=== PATIENT | male | born 1950 | race Caucasian/White ===

== ENCOUNTER 2021-02-09 17:01 | Emergency (ER) | payer MEDICARE ==
[2021-02-09 17:18] VITALS: RESP 18
[2021-02-09] MEDS ORDERED: METOCLOPRAMIDE 5 MG/ML 2 ML VIAL IVP STA (17:44)
--- NOTE | 2021-02-09 18:05 | ED ---
Nausea/Vomiting/Diarrhea HPI - General Source: patient, EMS, RN notes reviewed Mode of arrival: EMS Limitations: no limitations <Salud Alicea - Last Filed: 02/09/21 18:53> <Gabriel Elias - Last Filed: 02/09/21 20:16> - General Chief complaint: Nausea/Vomiting/Diarrhea Stated complaint: COVID+ Time Seen by Provider: 02/09/21 17:30 - History of Present Illness Initial comments: Patient is a 70-year-old female presenting to the emergency department via EMS with complaints of nausea, vomiting, diarrhea that started today. Patient states he tested positive for Covid 2 days ago, her symptoms began 4 days ago. She states her symptoms have been very mild with a mild cough, bodyaches and chills. She has not been vaccinated, just retruned from a trip to [place] last week. She states today, out of the blue, started having diarrhea and then nausea and vomiting. She's had several bouts of diarrhea today. Occasional abdominal cramping but no significant pain. She denies any chest pain or shortness of breath. She denies any fevers or chills. She states she has been eating and drinking as normal over the past few days until today. She has no further complaints. Patient did receive 2 L of fluids and 8 mg of Zofran EMS prior to arrival. Her vital signs are stable upon arrival. (Salud Alicea) - Related Data Home Medications Medication Instructions Recorded Confirmed Apixaban [Eliquis] 5 mg PO BID 02/09/21 02/09/21 Cholecalciferol [Vitamin D3 (25 50 mcg PO DAILY 02/09/21 02/09/21 Mcg = 1000 Iu)] Metoprolol Tartrate [Lopressor] 25 mg PO BID 02/09/21 02/09/21 Propafenone HCl 150 mg PO Q12H 02/09/21 02/09/21 Vitamin E 400 unit PO DAILY 02/09/21 02/09/21 Zinc 50 mg PO DAILY 02/09/21 02/09/21 guaiFENesin [Mucinex] 600 mg PO BID PRN 02/09/21 02/09/21 Allergies Allergy/AdvReac Type Severity Reaction Status Date / Time No Known Allergies Allergy Verified 02/09/21 18:27 Review of Systems ROS Other: All systems not noted in ROS Statement are negative. <Salud Alicea - Last Filed: 02/09/21 18:53> ROS Other: All systems not noted in ROS Statement are negative. <CurtGabriel - Last Filed: 02/09/21 20:16> ROS Statement: Those systems with pertinent positive or pertinent negative responses have been documented in the HPI. Past Medical History Past Medical History: Atrial Fibrillation Additional Past Medical History / Comment(s): ablation 01/2021 History of Any Multi-Drug Resistant Organisms: None Reported Past Surgical History: Section Past Psychological History: No Psychological Hx Reported Smoking Status: Never smoker <Salud Alicea - Last Filed: 02/09/21 18:53> General Exam Limitations: no limitations <Salud Alicea - Last Filed: 02/09/21 18:53> - General Exam Comments Initial Comments: GENERAL: Patient is well-developed and well-nourished. Patient is nontoxic and in no acute distress. HEAD: Atraumatic, normocephalic. EYES: Pupils equal round and reactive to light, extraocular movements intact, sclera anicteric, conjunctiva are normal. Eyelids were unremarkable. ENT: Nares patent, oropharynx clear without exudates. Moist mucous membranes. NECK: Normal range of motion, supple without lymphadenopathy or JVD. LUNGS: Unlabored respirations. Breath sounds clear to auscultation bilaterally and equal. No wheezes rales or rhonchi. HEART: Regular rate and rhythm without murmurs, rubs or gallops. ABDOMEN: Soft, mild discomfort noted in the lower abdomen region, this is generalized, no specific area pain., normoactive bowel sounds. No guarding, no rebound. No masses appreciated. MUSCULOSKELETAL: Normal extremities with adequate strength and normal range of motion, no pitting or edema. No clubbing or cyanosis. NEUROLOGICAL: Patient is alert and oriented x 3. Motor and sensory are also intact. Cranial nerves II through XII grossly intact. Symmetrical smile. Normal speech, normal gait. PSYCH: Normal mood, normal affect. SKIN: Warm, Dry, normal turgor, no rashes or lesions noted. (Salud Alicea) Course <Salud Alicea - Last Filed: 02/09/21 18:53> Vital Signs 1102/09/21 02/09/21 17:11 19:03 20:13 Temperature 97.6 F 98.2 F Pulse Rate 72 77 84 Respiratory 18 18 18 Rate Blood Pressure 139/78 133/76 132/68 O2 Sat by Pulse 95 94 L 96 Oximetry - Reevaluation(s) Reevaluation #1: 02/09/21 18:53 patient will be started BAM infusion, patient was signed out to Gabriel at shift change. (Salud Alicea) Medical Decision Making - Lab Data Result diagrams: 02/09/21 18:39 - Radiology Data Radiology results: report reviewed, image reviewed <Gabriel Elias - Last Filed: 02/09/21 20:16> - Medical Decision Making 70-year-old female that presents to the emergency Department with nausea vomiting diarrhea times one. Patient is Covid-positive. Patient does meet criteria for monoclonal antibody infusion. Basic labs ordered. Labs unremarkable. Patient is we will discharge home. Case discussed with Dr. Madsen him a patient can discharge home. (Gabriel Elias) - Lab Data Lab Results 02/09/21 Range/Units 18:39 WBC 9.7 (3.8-10.6) k/uL RBC 5.11 (4.30-5.90) m/uL Hgb 15.7 (13.0-17.5) gm/dL Hct 46.1 (39.0-53.0) % MCV 90.2 (80.0-100.0) fL MCH 30.8 (25.0-35.0) pg MCHC 34.2 (31.0-37.0) g/dL RDW 12.0 (11.5-15.5) % Plt Count 202 (150-450) k/uL MPV 8.1 Neutrophils % 84 % Lymphocytes % 10 % Monocytes % 4 % Eosinophils % 1 % Basophils % 0 % Neutrophils # 8.1 H (1.3-7.7) k/uL Lymphocytes # 1.0 (1.0-4.8) k/uL Monocytes # 0.4 (0-1.0) k/uL Eosinophils # 0.1 (0-0.7) k/uL Basophils # 0.0 (0-0.2) k/uL - Radiology Data Chest x-ray: No acute cardiopulmonary process. No change. (Gabriel Elias) Disposition <Salud Alicea Elaine - Last Filed: 02/09/21 18:53> Is patient prescribed a controlled substance at d/c from ED?: No Time of Disposition: 20:16 <Gabriel Elias - Last Filed: 02/09/21 20:16> Clinical Impression: COVID Disposition: HOME SELF-CARE Condition: Stable Instructions (If sedation given, give patient instructions): Acute Nausea and Vomiting (ED), Coronavirus Disease 2019 (COVID-19) Additional Instructions: Please return to the Emergency Department if symptoms worsen or any other concerns. Follow-up with primary care 1-2 days. Quarantine per CDC guidelines. Increase fluids. Referrals: Ester Avendano MD [Primary Care Provider] - 1-2 days
[2021-02-09] MEDS ORDERED: BAMLANIVIMAB (EUA) 700 MG, ETESEVIMAB (EUA) 1,400 MG in SODIUM CHLORIDE 0.9% 50 ML IVPB ONE (18:15)
[2021-02-09] MEDS ORDERED: SODIUM CHLORIDE 0.9% 50 ML IVPB ONE (18:15)
[2021-02-09 18:55] LABS: Basophils % (A) 0 %; Eosinophils # (A) 0.1 k/uL (0-0.7); Eosinophils % (A) 1 %; HCT 46.1 % (39.0-53.0); HGB 15.7 gm/dL (13.0-17.5); Lymphocytes % (A) 10 %; MCH 30.8 pg (25.0-35.0); MCHC 34.2 g/dL (31.0-37.0); MCV 90.2 fL (80.0-100.0); Mean Platelet Volume 8.1; Monocytes # (A) 0.4 k/uL (0-1.0); Monocytes % (A) 4 %; Neutrophils # (A) 8.1 k/uL (1.3-7.7); Neutrophils % (A) 84 %; Platelet Count 202 k/uL (150-450); RBC 5.11 m/uL (4.30-5.90); WBC 9.7 k/uL (3.8-10.6)
--- NOTE | 2021-02-09 19:17 | XR ---
EXAMINATION TYPE: XR chest 1V portable DATE OF EXAM: 02/09/2021 COMPARISON: NONE HISTORY: Nausea and vomiting TECHNIQUE: Single view FINDINGS: There is no heart failure nor confluent pneumonic infiltrate. Costophrenic angles are clear . There are no hilar masses. Bony thorax is intact. IMPRESSION: No active cardiopulmonary disease. Normal heart.
[2021-02-09 20:14] VITALS: BP 132/68; PULSE 84; TEMP 98.2
[2021-02-09] MEDS ORDERED: ONDANSETRON 4 MG ODT STARTER PACK 2 TAB BTL PO STA (20:16)
== END 2021-02-09 20:28 | disposition home or self-care (01) ==
LOC: EC 17:01
DX: U07.1 COVID-19 (principal); I48.91 Unspecified atrial fibrillation; Z79.01 Long term (current) use of anticoagulants
CPT/HCPCS: 36415; 85025; 71045; 99284; 96374; 96375; J2765; S0119; J3490